=== PATIENT | male | born 1995 | race Caucasian/White ===

== ENCOUNTER 2020-02-10 14:47 | Outpatient (CLI) | payer BC, SELFPAY ==
[2020-02-11 19:48] LABS: COVID-19 RT-PCR UVMMC Result Negative (Negative)
== END 2020-02-10 15:07 ==
PROVIDERS: PCP Family Medicine; Visit Provider Family Medicine
DX: Z11.59 Encounter for screening for other viral diseases (principal)
CPT/HCPCS: U0003

== ENCOUNTER 2020-08-29 15:03 | Outpatient (REF) | payer BC, SELFPAY ==
[2020-09-02 16:19] LABS: Patient Race White; SARS-CoV-2 RNA Undetected (Undetected); SARS-CoV-2 Specimen Source Nasal
== END 2020-08-29 15:23 ==
LOC: NCHCN 15:03
PROVIDERS: PCP Family Medicine; Visit Provider Family Medicine
DX: Z20.828 Contact with and (suspected) exposure to other viral communicable diseases (principal)
CPT/HCPCS: U0003

== ENCOUNTER 2020-12-26 12:16 | Outpatient (REF) | payer OTHER, SELFPAY ==
[2020-12-27 14:00] LABS: COVID-19 RT-PCR UVMMC Result Negative (Negative)
== END 2020-12-26 12:17 | disposition home or self-care (01) ==
LOC: NCHCN 12:16
PROVIDERS: PCP Family Medicine; Visit Provider Family Medicine
DX: Z20.822 Contact with and (suspected) exposure to COVID-19 (principal)
CPT/HCPCS: U0003

== ENCOUNTER 2021-12-08 08:42 | Emergency (ER) | payer BC, SELFPAY ==
[2021-12-08 08:51] VITALS: BP 120/70; PULSE 96; RESP 16; TEMP 37; O2SAT 99
[2021-12-08] MEDS: Normal Saline 1,000 ML 1000 ML IV (09:09)
[2021-12-08] MEDS: Ondansetron 4 MG/2 ML VIAL IVP (09:09)
[2021-12-08 09:18] LABS: Abs Immature Grans 0.05 10^3/uL (0.0-0.06); HCT 48.9 % (40.0-50.0); HGB 16.3 g/dL (13.5-17.5); MCH 27.1 pg (27.0-33.0); MCHC 33.3 % (32.0-36.0); MCV 81.4 fL (80-95); MPV 8.8 fL (8.0-11.0); Nucleated RBC 0 %; RDW 12.6 % (11.8-14.1); RDW-SD 37.1 fL; WBC 16.16 10^3/uL (4.4-10.8)
--- NOTE | 2021-12-08 09:33 | ED.GENADUL_ITS ---
Discharge Plan Disposition Patient Disposition: HOME Condition: Stable Discharge Details Clinical Impression: Foodborne gastroenteritis Primary Care Provider: Kelly Patel ED Provider: Tacos Hernández Home Meds and New Rx's Prescriptions: New ondansetron 4 mg tablet,disintegrating 4 mg PO Q6H PRN (Reason: nausea and vomiting) Qty: 10 0RF Discharge Instructions Instructions: Gastroenteritis (ED) Additional Instructions: It is very important that you stay well-hydrated. Feel free to return for any new or significant worsening of symptoms which include bloody vomit, blood in your stool, mucus in your stool, severe abdominal pain or any further concerns. Otherwise if not improving in the next week please follow-up with your primary care provider for reassessment and further testing as needed. Referrals: Kelly Patel [Primary Care Provider] - (As needed for reassessment or if not improving in the next week) Discharge Data Discharge Date/Time-TO BE ENTERED AT DEPARTURE: 12/08/21 10:20 Medical Decision Making Patient presenting to the emergency department for chief complaint of nausea vomiting diarrhea. Patient states that yesterday evening he had chicken wings and then around 5 AM started having sudden onset of symptoms. Other household member who also had chicken is having similar symptoms and also presenting to the emergency department. No one else in the home ate the same food and are otherwise asymptomatic. Physical exam is unremarkable for any acute findings. No McBurney's point tenderness, no abdominal tenderness to palpation, and otherwise active bowel sounds. We will plan to check labs for concern of dehydration due to significant vomiting and diarrhea. Will give Zofran and IV fluids pending results. Reviewed results that show elevated WBC and RBC which is concerning for concentration and possible dehydration which fits picture. Patient does have elevated neutrophils and lymphocytes are low. CMP is reassuring with only slight elevation in glucose and alk phos but otherwise nonworrisome. Patient was reassessed after fluid completion states slight improvement of symptoms. Given patient's story I do feel that this is high likelihood of foodborne illness and that conservative management is appropriate at this point. Prescribed patient Zofran to use as needed and encouraged hydration. Thoroughly discussed return and follow-up precautions prior to discharge. After discussion of diagnosis and plan of care patient has no further needs, questions, or concerns and states clear understanding to return to the emergency department for any worsening symptoms. Lab Data Lab results reviewed: Yes I reviewed the patient's lab results. Labs: Laboratory Tests Range/Units 12/08/21 12/08/21 12/08/21 09:05 09:05 09:30 WBC (4.4-10.8) 10^3/uL 16.16 H RBC (4.36-5.78) 10^6/uL 6.01 H Hgb (13.5-17.5) g/dL 16.3 Hct (40.0-50.0) % 48.9 MCV (80-95) fL 81.4 MCH (27.0-33.0) pg 27.1 MCHC (32.0-36.0) % 33.3 RDW (11.8-14.1) % 12.6 Plt Count (130-400) 10^3/uL 258 MPV (8.0-11.0) fL 8.8 Immature Gran % See Differential Neutrophils % 92.0 Band Neutrophils % 2 Lymphocytes % 1.0 Monocytes % 3.0 Eosinophils % 1.0 Basophils % 1.0 Nucleated RBC % % 0 Absolute Neutrophils (1.2-6.7) 10^3/uL 15.19 H Absolute Lymphocytes (1.2-3.4) 10^3/uL 0.16 L Absolute Monocytes (0.1-0.8) 10^3/uL 0.48 Absolute Eosinophils (0.0-0.7) 10^3/uL 0.16 Absolute Basophils (0.0-0.2) 10^3/uL 0.16 RBC Morphology Normal Sodium Cancelled 140 Potassium Cancelled 4.0 Chloride Cancelled 105 Carbon Dioxide Cancelled 27.8 Anion Gap Cancelled 7.2 BUN Cancelled 17 Creatinine Cancelled 1.1 Estimated GFR/1.73 m2 Cancelled >= 60.00 Glucose Cancelled 120 H Calcium Cancelled 8.6 Magnesium Cancelled 1.8 Total Bilirubin Cancelled 0.7 AST Cancelled 24 ALT Cancelled 35 Alkaline Phosphatase Cancelled 143 H Total Protein Cancelled 7.6 Albumin Cancelled 3.7 Lipase Cancelled 32 HPI General Mode of arrival: ambulatory . Date/Time Provider Initiated Documentation: 12/08/21 08:57 . Limitations to Documentation: no limitations . Information obtained by: patient . History of Present Illness 26 year old M presents to the emergency department with the chief complaint of Nausea/vomiting/abdominal cramping, described as moderate, with intensity rated at 5. Quality is described as aching, and is localized to the abdomen. Patient reports no radiation. Patient started experiencing this hour(s) (4) and it has been constant. improves with No relieving factors improve symptom(s), Eating worsens symptoms . Patient notes loss of appetite. Patient did receive the following treatments prior to arrival, none Related Data Home Medications Medication Instructions Recorded Confirmed ondansetron 4 mg disintegrating 4 mg PO Q6H PRN #10 tab 12/08/21 tablet Previous Rx's Medication Instructions Recorded ondansetron 4 mg disintegrating 4 mg PO Q6H PRN #10 tab 12/08/21 tablet Allergies Allergy/AdvReac Type Severity Reaction Status Date / Time No Known Allergies Allergy Unverified 12/08/21 08:56 General Stated Complaint: Nausea/Vomit/Diar SOFIYA: 3 Review of Systems Constitutional Constitutional: Denies chills, Denies fever(s) and Reports poor appetite Cardiovascular Cardiovascular: Denies chest pain and Denies dyspnea Respiratory Respiratory: Denies cough and Denies dyspnea Gastrointestinal Gastrointestinal: Reports as per HPI, Reports abdominal pain, Denies melena, Denies hematochezia, Denies change in bowel habits, Denies constipation, Reports cramping, Reports diarrhea, Reports nausea, Reports vomiting and Denies hematemesis Genitourinary Genitourinary: Denies hematuria, Denies difficulty urinating, Denies urinary hesitancy, Denies urinary incontinence and Denies urinary urgency Integumentary/Breasts Skin/Breast: Denies rash PFSH All Active Problems (Updated 12/08/21 @ 10:08 by Tacos Hernández NP) Foodborne gastroenteritis (Acute) Social History Smoking/Tobacco Use Status: Never Smoking risk assessment performed?: Yes Drug use: Never Substance use type: does not use Exam Const General: cooperative Orientation: alert, awake and oriented x3 Resp Effort & Inspection: normal respiratory effort and able to speak in complete sentences Auscultation: clear to auscultation bilaterally Cardio Rate: regular rate Rhythm: regular rhythm Heart Sounds: S1 normal and S2 normal GI Palpation: soft, no hepatosplenomegaly, not firm, no guarding, no masses, no pulsatile masses, not rigid, no splenomegaly and nontender Auscultation: normal bowel sounds Back/Spine/Pelvis Back: no CVA tenderness Neuro General: patient alert, patient awake, patient oriented x3, gait normal and moves all extremities Course Vital Signs Vital signs: Vital Signs Temperature 37 C 12/08/21 08:51 Pulse 96 H 12/08/21 08:51 Respiratory Rate 16 12/08/21 08:51 Blood Pressure 120/70 12/08/21 08:51 Pulse Oximetry 99 12/08/21 08:51 Temperature 37 C 12/08/21 08:51 Temperature Source Skin 12/08/21 08:51 Pulse 96 H 12/08/21 08:51 Respiratory Rate 16 12/08/21 08:51 Respiratory Effort 12/08/21 08:51 Blood Pressure 120/70 12/08/21 08:51 Blood Pressure Position Sitting 12/08/21 08:51 Pulse Oximetry 99 12/08/21 08:51 Oxygen Delivery Method Room Air 12/08/21 08:51 Oxygen Flow Rate 0 12/08/21 08:51 Pain Level 5 12/08/21 08:51 Lab/Test Results Lab/Test Results: Laboratory Tests Range/Units 12/08/21 09:05 Sodium Cancelled Potassium Cancelled Chloride Cancelled Carbon Dioxide Cancelled Anion Gap Cancelled BUN Cancelled Creatinine Cancelled Estimated GFR/1.73 m2 Cancelled Glucose Cancelled Calcium Cancelled Magnesium Cancelled Total Bilirubin Cancelled AST Cancelled ALT Cancelled Alkaline Phosphatase Cancelled Total Protein Cancelled Albumin Cancelled Lipase Cancelled
[2021-12-08 09:49] LABS: ALT 35 U/L (16-63); AST 24 U/L (15-37); Albumin 3.7 g/dL (3.4-5.0); Alkaline Phosphatase 143 U/L (46-116); Anion Gap 7.2 mmol/L (3-11); BUN 17 mg/dL (7-18); Bilirubin, Total 0.7 mg/dL (0.2-1.0); CO2 27.8 mmol/L (21.0-32.0); CREATININE 1.1 mg/dL (0.70-1.30); Calcium 8.6 mg/dL (8.5-10.1); Chloride 105 mmol/L (98-107); Glucose 120 mg/dL (74-106); Lipase 32 U/L (73-393); Magnesium 1.8 mg/dL (1.8-2.4); Sodium 140 mmol/L (136-145); Total Protein 7.6 g/dL (6.4-8.2)
[2021-12-08 09:55] LABS: RBC 6.01 10^6/uL (4.36-5.78)
[2021-12-08 09:56] LABS: Absolute Basophil Count 0.16 10^3/uL (0.0-0.2); Absolute Eosinophil Count 0.16 10^3/uL (0.0-0.7); Absolute Lymphocyte Count 0.16 10^3/uL (1.2-3.4); Absolute Monocyte Count 0.48 10^3/uL (0.1-0.8); Absolute Neutrophil Count 15.19 10^3/uL (1.2-6.7); Bands % 2; Diff Comment Manual Differential; Platelet Count 258 10^3/uL (130-400); RBC Morphology Normal
== END 2021-12-08 10:20 | disposition home or self-care (01) ==
PROVIDERS: Emergency Provider Nurse Practitioner Family; PCP Family Medicine
DX: A05.9 Bacterial foodborne intoxication, unspecified (principal); D72.829 Elevated white blood cell count, unspecified
CPT/HCPCS: 36415; 80053; 83690; 96361; 96374; 99284; 83735; 85025; 99283; J2405

== ENCOUNTER 2025-05-27 00:26 | Outpatient (CLI) | payer BC, SELFPAY ==
[2025-05-27 09:08] LABS: ALT 48 U/L (16-63); AST 27 U/L (15-37); Albumin 3.9 g/dL (3.4-5.0); Alkaline Phosphatase 155 U/L (46-116); Anion Gap 8.0 mmol/L (3-11); BUN 12 mg/dL (7-18); Bilirubin, Total 0.8 mg/dL (0.2-1.0); CO2 29.0 mmol/L (21.0-32.0); Calcium 9.3 mg/dL (8.5-10.1); Calculated LDL 185 mg/dL (<100); Chloride 103 mmol/L (98-107); Cholesterol 258 mg/dL (<200); Estimated GFR 124.40 (mL/min/1.73m2); Glucose 104 mg/dL (74-106); HDL Cholesterol 54 mg/dL (>or=40); Potassium 4.0 mmol/L (3.5-5.1); Sodium 140 mmol/L (136-145); Total Protein 7.9 g/dL (6.4-8.2); Triglyceride 96 mg/dL (<150)
[2025-05-27 19:26] LABS: HIV-1/2 Ag & Ab Screen Negative (Negative)
[2025-05-27 19:27] LABS: Hepatitis C Ab w Rflx HCV PCR Negative (Negative)
== END 2025-05-27 00:27 | disposition home or self-care (01) ==
PROVIDERS: PCP Family Medicine; Visit Provider Family Medicine
DX: Z11.59 Encounter for screening for other viral diseases (principal); Z11.4 Encounter for screening for human immunodeficiency virus [HIV]; E78.1 Pure hyperglyceridemia; E66.9 Obesity, unspecified
CPT/HCPCS: 36415; 80053; 80061; 86803; 87389